=== PATIENT | female | born 1995 | race Caucasian/White ===

== ENCOUNTER 2016-10-30 19:48 | Emergency (ER) | payer BC ==
[2016-10-30] MEDS ORDERED: diphenhydrAMINE HCL 50 MG/ML VIAL IM ONE (21:48)
[2016-10-30] MEDS ORDERED: METHYLPREDNISOLONE ACETATE 80 MG/ML VIAL IM ONE (21:54)
--- OUTSIDE RECORDS SUMMARY | 2016-10-30 22:02 | XMS REPORT | Continuity of Care Document ---
:1995 Author Organization [facility] ([facility]) [place] [address] Phone [phone] Care Team Providers Name Role Phone Provider, No-Primary Care Primary Care Provider Unavailable Source Comments This disclosure is being made pursuant to the Care Everywhere program, applicable federal and state laws, and may not contain all informaitonavailable regarding this patient.[facility] ([facility]) Active Allergies and Adverse Reactions Not on File Current Medications Not on file Active Problems Not on file Social History Tobacco Use Types Packs/Day Years Used Date Never Assessed Plan of Care Health Maintenance Due Date Last Done Comments Hepatitis B Vaccine (1 of 3 - Primary Series) 1996 HPV Vaccine (1 of 3 - Female/Unknown 3 Dose Series) 2007 Tdap Vaccine 2007 Meningococcal Vaccine (1 of 1) 2012 Lipid Disorder Screening 2014 MMR Vaccine 2014 Td Vaccine 2014 Varicella Vaccine (1 of 2 - Adult - No Evidence of 2014 Immunity) Influenza Vaccine: Seasonal (#1) 02/14/2016 Results from Last 3 Months Not on file
[2016-10-30] MEDS ORDERED: METHYLPREDNISOLONE ACETATE 80 MG/ML VIAL ONE (22:05)
[2016-10-30] MEDS ORDERED: diphenhydrAMINE HCL 50 MG/ML VIAL ONE (22:06)
--- NOTE | 2016-10-30 22:23 | ERNOTE ---
Integumentary HPI - Narrative Date of Service: 10/30/16 - General Time Seen by Provider: 10/30/16 21:36 Source: patient Exam Limitations: no limitations - Immun/Allergies/Home Medications Immunizations: IMMUNIZATION HX Immunizations Up to Date Yes History of Influenza Vaccine No Hx Pneumococcal Vaccination No Allergies/Adverse Reactions: Allergies Allergy/AdvReac Type Severity Reaction Status Date / Time No Known Allergies Allergy Verified 06/12/16 10:01 Home Medications: HOME MEDICATIONS Albuterol Sulfate [Proair Hfa] 1 - 2 puff IH Q4H PRN 08/11/15 [Last Taken Unknown] Citalopram Hydrobromide [Citalopram HBr] 10 mg PO DAILY 06/12/16 [Last Taken Unknown] Cephalexin Monohydrate [Keflex] 500 mg PO QID #40 cap 10/30/16 [Last Taken Unknown] predniSONE [Prednisone] 3 tab PO DAILY #9 tab 10/30/16 [Last Taken Unknown] - History of Present Illness Narrative: Pt. comes in with c/o bee sting to her L third toe yesterday and then she noticed redness and swelling of her R fifth finger yesterday. Pt. states that the bee did not sting her finger but she had a hang nail there yesterday. Review of Systems - Review of Systems Constitutional: Present: no symptoms reported. Absent: recent illness, fever, chills, fatigue, malaise EYE: Present: no symptoms reported ENT: Present: no symptoms reported Respiratory: Present: no symptoms reported. Absent: shortness of breath, cough , wheezing Cardiology: Present: no symptoms reported. Absent: chest pain, palpitations, edema Gastrointestinal/Abdominal: Present: no symptoms reported. Absent: nausea, vomiting, diarrhea Genitourinary: Present: no symptoms reported Musculoskeletal: Present: joint pain - L third toe, R fifth finger, joint swelling - L third toe to mid foot Skin: Present: other - redness R fifth finger and third L toe to mid-foot Neurological: Present: no symptoms reported. Absent: dizziness/light-headedness , numbness, tingling All Other Systems: All systems neg except as marked - Patient's Past Medical History Patient History - Medical: No pertinent hx, Anxiety Patient History - Cardiac/Respiratory: No pertinent hx Patient History - Cancer: No Hx of Cancer Patient History - Surgical Procedures: T & A, Other Patient History - Other: None - Family History Mother Family History - Medical: Family History - Cardiac/Respiratory: Coronary Heart Disease Father Family History - Medical: History Unknown - Social History Living Situations: home Abuse History: No History of abuse Psych History: Hx of Anxiety Smoking Status: Never smoker Alcohol Use: occasionally Drug Use: none - Immunizations Immunizations Up to Date: Yes Hx Pneumococcal Vaccination: No History of Influenza Vaccine: No Physical Exam - Physical Exam General Appearance: Present: wd/wn, alert, no apparent distress Eye Exam: Normal inspection: bilateral, PERRL: bilateral, EOMI: bilateral Ears, Nose, Throat: Present: normal ENT inspection, normal pharynx Neck: Present: normal inspection, nontender. Absent: lymphadenopathy (R), lymphadenopathy (L) Respiratory: Present: no respiratory distress, normal breath sounds, no accessory muscle use, chest nontender, lungs clear Cardiovascular/Chest: Present: regular rate, rhythm, no murmur, normal peripheral pulses Gastrointestinal/Abdominal: Present: normal bowel sounds, nontender, nondistended, soft Back Exam: Present: normal inspection Extremity Exam: Present: other - 0.5cm in diameter Neurological Exam: Present: alert, oriented, normal mood/affect, no motor/ sensory deficits Skin Exam: Present: warm/dry, other - redness as described above ED Progress - Vital Signs Vital Signs: Vital Signs 10/30/16 20:17 Temperature 36.5 C Pulse Rate 98 Respiratory 18 Rate Blood Pressure 121/97 O2 Sat by Pulse 100 Oximetry - Progress/Reassessment Chief Complaint: Insect Bite Departure Clinical Impression: Bee sting allergy, Cellulitis and abscess of finger, unspecified - Departure Disposition: Home self-care Condition: Good Instructions: Cellulitis, Adult, [id number], Anaphylactic Reaction, Easy-to- Read Additional Instructions: Please follow up with Ria murrell in 2-3 days and get melinda vizcarra and galen to keep on you at all times until you are seen by her. Referrals: Ria Murrell MD [Primary Care Provider] - Prescriptions: Cephalexin Monohydrate [Keflex] 500 mg PO QID #40 cap predniSONE [Prednisone] 3 tab PO DAILY #9 tab
[2016-10-31 00:59] VITALS: BP 112/70
== END 2016-10-30 22:35 | disposition home or self-care (01) ==
LOC: ER 19:48
DX: T63.441A Toxic effect of venom of bees, accidental (unintentional), initial encounter (principal); Y92.9 Unspecified place or not applicable; Z91.030 Bee allergy status; L03.011 Cellulitis of right finger

== ENCOUNTER 2017-03-20 00:21 | Emergency (ER) | payer BC ==
--- NOTE | 2017-03-20 00:30 | ERNOTE ---
ER Female HPI Date of Service: 03/20/17 Stated Complaint: UTI Presenting Symptoms: dysuria Time Seen by Provider: 03/20/17 00:27 Immunizations: IMMUNIZATION HX Immunizations Up to Date Yes History of Influenza Vaccine No Hx Pneumococcal Vaccination No Allergies/Adverse Reactions: Allergies No Known Allergies Allergy (Verified 06/12/16 10:01) Home Medications: HOME MEDICATIONS Albuterol Sulfate [Proair Hfa] 1 - 2 puff IH Q4H PRN 08/11/15 [Last Taken Unknown] Venlafaxine HCl [Effexor Xr] 150 mg PO DAILY 03/20/17 [Last Taken Unknown] lamoTRIgine [Lamictal] 100 mg PO DAILY 03/20/17 [Last Taken Unknown] - History of Present Illness Narrative: This is a 21-year-old female who comes to the emergency department complaining of dysuria. She says that she was seen last Sunday and was told she might have a urinary tract infection and given antibiotics. She had dysuria at that time which was mild. She has been on the antibiotics and says that the dysuria has gotten worse. She says that she is also noticed some lesions and has had an change in her vaginal discharge. Last period was middle of February. She is not on contraceptive. The patient admits she has had a new sexual partner recently and that they did not use protection. She has no history of sexual transmitted diseases. The patient has no other complaints. No fever or chills back pain pelvic pain chest pain shortness of breath headache blurred vision or any other complaints Review of Systems - Review of Systems Constitutional: Present: no symptoms reported EYE: Present: no symptoms reported ENT: Present: no symptoms reported Respiratory: Present: no symptoms reported Cardiology: Present: no symptoms reported Gastrointestinal/Abdominal: Present: no symptoms reported Genitourinary: Present: See HPI, frequency, dysuria, discharge Musculoskeletal: Present: no symptoms reported Skin: Present: no symptoms reported Neurological: Present: no symptoms reported Endocrine: Present: no symptoms reported Hematologic/Lymphatic: Present: no symptoms reported Psych: Present: no symptoms reported All Other Systems: All systems neg except as marked - Patient's Past Medical History Patient History - Medical: No pertinent hx, Anxiety Patient History - Cardiac/Respiratory: No pertinent hx Patient History - Cancer: No Hx of Cancer Patient History - Surgical Procedures: T & A, Other Patient History - Other: None - Family History Mother Family History - Medical: Family History - Cardiac/Respiratory: Coronary Heart Disease Father Family History - Medical: History Unknown - Social History Living Situations: home Abuse History: No History of abuse Psych History: Hx of Anxiety Alcohol Use: occasionally Drug Use: none - Immunizations Immunizations Up to Date: Yes Hx Pneumococcal Vaccination: No History of Influenza Vaccine: No Physical Exam - Physical Exam General Appearance: Present: wd/wn, alert, no apparent distress Head Exam: Present: normal inspection, no evidence of injury Eye Exam: Normal inspection: bilateral, PERRL: bilateral, EOMI: bilateral Ears, Nose, Throat: Present: normal ENT inspection, normal pharynx Neck: Present: normal inspection, nontender Respiratory: Present: no respiratory distress, normal breath sounds, no accessory muscle use, lungs clear Cardiovascular/Chest: Present: regular rate, rhythm, no murmur, normal peripheral pulses Gastrointestinal/Abdominal: Present: normal bowel sounds, nontender, nondistended, soft Pelvic Exam: Present: other - pelvic exam was performed in the presence of nursing staff. External exam demonstrates 4 small vesicles and ulcers present on the left gluteal area. The patient has 2 similar lesions on the right labia minora. I do not see any lesions on the left labia minora. Vaginal exam demonstrates normal mucosa. No gross blood. No lesions. No significant discharge. Cervix is normal in appearance without cervicitis. Small amount of mucoid discharge which is likely normal. Digital exam does not demonstrate any cervical cervical motion tenderness or adnexal fullness Back Exam: Present: normal inspection, normal range of motion, no CVA tenderness , no vertebral tenderness Extremity Exam: Present: normal inspection, non-tender, normal range of motion, no edema Neurological Exam: Present: alert, oriented, normal mood/affect, no motor/ sensory deficits Skin Exam: Present: normal color, warm/dry Lymphatic Exam: Present: no adenopathy Plan - Plan Plan: I discussed with the patient the fact that her exam is quite concerning for sexually-transmitted diseases including herpes virus. I made the patient aware that I do not have the ability to test for this here in the emergency department , but she will need to see her VETERINARY EPIDEMIOLOGIST. This is something which needs to be done sooner rather than later. Her VETERINARY EPIDEMIOLOGIST will decide on whether to put her on immunosuppressant medicines I'm currently on soy suppressant medicines for viral , Valtrex. Because the patient has one sexually transmitted disease she is at risk for others. I think empiric treatment with Rocephin and azithromycin for gonorrhea and chlamydia would be appropriate. I counseled the patient on getting tested for HIV. The patient has been advised she should not have sexual intercourse until she has been comprehensively evaluated by her VETERINARY EPIDEMIOLOGIST. If she finds herself in a situation where she cannot avoid having her course she needs to make sure she uses protection. She is aware she should return to the ER for any new or worrisome symptoms Departure Clinical Impression: Genital herpes - Departure Disposition: Home self-care Condition: Stable Instructions: Genital Herpes Additional Instructions: As we discussed, urinary exam is very concerning for genital herpes. I do not have the ability to make this diagnosis here in the emergency department. This is something he will need to see her VETERINARY EPIDEMIOLOGIST doctor for. I want you to call tomorrow morning, tell them you were seen in the emergency department and why and asked to be worked into the schedule as soon as possible. Because I suspect you have one sexually transmitted disease, I will treat U for other commonly transmitted diseases including gonorrhea and chlamydia. I've gained any medicine for this. The need to talk to your family doctor or VETERINARY EPIDEMIOLOGIST doctor about getting checked for HIV as well. If the VETERINARY EPIDEMIOLOGIST doctor believes that you have genital herpes she will almost certainly start you on an antiviral medicine, likely Valtrex. You must absolutely positively have no intercourse and to you have been cleared to do so by your VETERINARY EPIDEMIOLOGIST doctor. The risks spreading possible sexually not transmitted diseases to others, even if you use protection. Return to the ER if you develop any new or some symptoms Referrals: Ria Falcon MD [Primary Care Provider] -
[2017-03-20 00:46] LABS: Urine Bilirubin Negative (NEGATIVE); Urine Blood Negative /ul (NEGATIVE); Urine Ketone Negative (NEGATIVE); Urine Nitrite Negative (NEGATIVE); Urine Protein Negative (NEGATIVE); Urine Urobilinogen Normal (NORMAL)
[2017-03-20 00:59] LABS: Urine Amorphous Sediment Many - 3+ (NONE-FEW); Urine Appearance Cloudy; Urine Bacteria 1+; Urine Color Yellow; Urine RBC None Seen /hpf (0-5); Urine WBC 0-5 /hpf (0-5)
[2017-03-20] MEDS ORDERED: AZITHROMYCIN 250 MG TABLET PO ONE ×2 (01:17→01:20)
[2017-03-20] MEDS ORDERED: AZITHROMYCIN 250 MG TABLET ONE (01:26)
[2017-03-20 01:47] VITALS: BP 126/89
== END 2017-03-20 01:45 | disposition home or self-care (01) ==
LOC: ER 00:21
DX: A60.00 Herpesviral infection of urogenital system, unspecified (principal)

== ENCOUNTER 2018-10-26 15:34 | Inpatient (IN) ==
[2018-10-26] MEDS ORDERED: OXYTOCIN/DEXTROSE 5%-WATER 30 UNITS/500 ML BAG IV ONE (18:00)
[2018-10-26] MEDS ORDERED: PENICILLIN G POTASSIUM 5 MILLIONUNT in DEXTROSE 5 % IN WATER 100 ML IV ONE ×2 (18:00)
[2018-10-26] MEDS ORDERED: RINGER'S SOLUTION,LACTATED 1,000 ML IV ONE (18:00)
[2018-10-26] MEDS ORDERED: DEXTROSE 5%-LACTATED RINGERS 1,000 ML IV PRN (18:00)
[2018-10-26 19:56] LABS: Cocaine Ur Negative (NEGATIVE); Urine Barbiturate Negative (NEGATIVE); Urine Benzodiazepines Negative (NEGATIVE); Urine Opiates Negative (NEGATIVE); Urine PCP Negative (NEGATIVE); Urine THC Negative (NEGATIVE)
[2018-10-26] MEDS ORDERED: ONDANSETRON HCL/PF 2 MG/ML VIAL IV PRN (21:07)
[2018-10-26] MEDS ORDERED: NALOXONE HCL 1 MG/1 ML SYRG IV PRN (21:07)
[2018-10-26] MEDS ORDERED: BUPIVACAINE HCL/0.9 % NACL/PF 250 ML EP PRN (21:07)
[2018-10-26] MEDS ORDERED: LIDOCAINE HCL/EPINEPHRINE 20 ML VIAL IJ ONE (21:08)
[2018-10-26] MEDS ORDERED: BUPIVACAINE HCL/PF 30 ML VIAL EP SCH (21:15)
[2018-10-26] MEDS ORDERED: PENICILLIN G POTASSIUM 2.5 MILLIONUNT in DEXTROSE 5 % IN WATER 100 ML IV SCH ×2 (22:00)
[2018-10-26] MEDS ORDERED: LIDOCAINE HCL/EPINEPHRINE 20 ML VIAL ONE (22:21)
--- NOTE | 2018-10-26 22:22 | ANES ---
Anesthesia Pre Procedure Eval Vitals/Labs: Last Vital Signs Temp 37.1 C 10/26/18 18:55 Pulse 123 H 10/26/18 18:55 Resp 18 10/26/18 18:55 BP 129/77 10/26/18 18:55 Pulse Ox 98 10/26/18 18:55 HOME MEDICATIONS [id number] 400 mcg-om3 35 mg-dha 25 mg-epa 5 mg-fish oil chewable tablet 1 tab PO DAILY tab 03/26/18 [Last Taken 10/26/18] ferrous sulfate 325 mg (65 mg iron) tablet 325 mg PO DAILY #30 tab 08/08/18 [Last Taken 10/26/18] Aspirin [Aspirin EC] 81 mg PO DAILY 08/09/18 [Last Taken 10/26/18] valacyclovir 1 gram tablet 1,000 mg PO DAILY #30 tab 09/26/18 [Last Taken 10/15/18] sertraline 100 mg tablet 100 mg PO .COMPLEX 30 Days #30 tab 10/17/18 [Last Taken Unknown] Allergies/Adverse Reactions: Allergies Allergy/AdvReac Type Severity Reaction Status Date / Time bee venom protein (honey bee) Allergy Mild Swelling Verified 10/26/18 18:03 to Site betamethasone Allergy Mild Rash Verified 10/26/18 18:03 - Planned Procedure Planned Procedure: Labor epidural Medication List Reviewed:: Yes Allergies Verified: Yes Medical History (Updated 10/17/18 @ 14:54 by Liz Mcelroy MD) Asthma (Inactive) History of pre-eclampsia (Chronic) HSV antigen DIF positive (Inactive) Depression (Chronic) Subchorionic hemorrhage (Acute) 1.19cm x 0.61cm Anemia Onset Date: 11/15/15 w/pregnancies Anxiety Asthma Onset Date: Unknown as a child, no current problems or tx, no hospitalizations Body piercing Depression Onset Date: 04/17/16 HSV-1 (herpes simplex virus 1) infection Onset Date: 03/22/17 HSV-2 (herpes simplex virus 2) infection Onset Date: 03/22/17 Last outbreak 03/2017 Hemorrhoids Onset Date: Unknown Tattoos Wears glasses Heart murmur Onset Date: Unknown Hx of wisdom tooth extraction Onset Date: ~2013 Pharyngitis, acute Onset Date: 04/15/12 hypertension Onset Date: 02/29/16 Pre-eclampsia Onset Date: 02/18/16 Urinary tract infection Onset Date: ~2010 Cellulitis and abscess of finger, unspecified (Inactive) Genital herpes (Inactive) Pre-eclampsia (Inactive) labor (Inactive) Tibia and fibula open fracture, right (Inactive) Trimalleolar fracture of left ankle (Inactive) Surgical History (Updated 10/15/18 @ 21:33 by Buck Pryor DO) Hx of tonsillectomy History of ankle surgery Onset Date: ~05/2017 Bilateral ankle and lower leg tonsillectomy and adenoidectomy in patient age 12 or over Onset Date: ~2013 Family History (Updated 03/26/18 @ 13:48 by Christopher Carr RN) Grandfather Heart disease Diabetes Throat cancer CHF (congestive heart failure) Grandmother TIA CVA (cerebral vascular accident) Mother , suddenly at work 2015 age 47 Hypertension Enlarged heart suddenly at work in 2015 @ age 47. Brother Autism Daughter Heart murmur Bile acid esophageal reflux - Anesthesia Assessment and Plan ASA Class: PS, II Anesthesia Type Plan: Epidural
--- NOTE | 2018-10-26 22:40 | ANES ---
Post Anesthesia Assessment - Vital Signs Vitals: Last Vital Signs Temp 36.7 C 10/26/18 22:35 Pulse 94 10/26/18 22:35 Resp 18 10/26/18 22:35 BP 131/76 10/26/18 22:35 Pulse Ox 100 10/26/18 22:35 Airway Patency: Normal - Mental Status Level Of Consciousness: Awake - N/V Assessment Nausea/Vomiting Presence: None Dehydration:: No
--- NOTE | 2018-10-26 22:40 | ANES ---
Anesthesia Procedure Note Procedure Note: ANESTHESIA PROCEDURE NOTE Date of Procedure: 11/01/2018. Time of procedure: 2224. Performed by: Gennaro Segovia CRNA Collar Setter Overlock: None. Preprocedure diagnosis: Active labor. Post procedure diagnosis: Same. Procedure: Insertion of labor epidural. Indications: The patient is a 23 -year-old female in active labor requesting labor epidural for pain management. Findings: See below. Details of the procedure: The patient was placed in a sitting position. DuraPrep as well as Betadine swabs X3 was applied to the patient's back. Patient was then draped in a sterile fashion. Lidocaine 1% was infiltrated to the skin and subcutaneous tissues at the level of the L3-4 interspace. The epidural space was identified using a 18-gauge Tuohy needle with [id number] technique. Epidural catheter was inserted to a depth of 13 centimeters at skin. Negative test dose was elicited using 3 mL of 2% preservative-free lidocaine plus epinephrine 1 200,000. The epidural catheter was then taped and secured in place. A loading dose of 8 mL of 0.25% preservative-free bupivacaine was administered to the epidural catheter after negative aspiration for blood and CSF. EBL: Minimal. Fluids: N/A. Specimen: N/A. Post procedure condition: The patient tolerated the procedure well. No complications were noted. Thank you for this consultation. Gennaro Segovia CRNA
--- NOTE | 2018-10-27 01:52 | HP ---
Chief Complaint - Chief Complaint Date of Service: 10/27/18 Time of Service: 01:51 Chief Complaint: induction of labor for oligohydramnios History of Present Illness: 23 yo admitted at 39 wks for induction of labor due to oligohydramnios. This complicated by anemia, anxiety/bipolar/depression, HSV carrier, oligohydramnios, h/o preeclampsia, and labor. Rh negative Rubella immune GBS carrier Medical History (Updated 10/27/18 @ 01:51 by Buck Pryor DO) Asthma (Inactive) History of pre-eclampsia (Chronic) HSV antigen DIF positive (Inactive) Depression (Chronic) Subchorionic hemorrhage (Acute) 1.19cm x 0.61cm Anemia Onset Date: 11/15/15 w/pregnancies Anxiety Asthma Onset Date: Unknown as a child, no current problems or tx, no hospitalizations Body piercing Depression Onset Date: 04/17/16 HSV-1 (herpes simplex virus 1) infection Onset Date: 03/22/17 HSV-2 (herpes simplex virus 2) infection Onset Date: 03/22/17 Last outbreak 03/2017 Hemorrhoids Onset Date: Unknown Tattoos Wears glasses Heart murmur Onset Date: Unknown Hx of wisdom tooth extraction Onset Date: ~2013 Pharyngitis, acute Onset Date: 04/15/12 hypertension Onset Date: 02/29/16 Pre-eclampsia Onset Date: 02/18/16 Urinary tract infection Onset Date: ~2010 Cellulitis and abscess of finger, unspecified (Inactive) Genital herpes (Inactive) Pre-eclampsia (Inactive) labor (Inactive) Tibia and fibula open fracture, right (Inactive) Trimalleolar fracture of left ankle (Inactive) Surgical History: Surgical History (Updated 10/15/18 @ 21:33 by Buck Pryor DO) Hx of tonsillectomy History of ankle surgery Onset Date: ~05/2017 Bilateral ankle and lower leg tonsillectomy and adenoidectomy in patient age 12 or over Onset Date: ~2013 Family History: Family History (Updated 03/26/18 @ 13:48 by Christopher Carr RN) Grandfather Heart disease Diabetes Throat cancer CHF (congestive heart failure) Grandmother TIA CVA (cerebral vascular accident) Mother , suddenly at work 2015 age 47 Hypertension Enlarged heart suddenly at work in 2014 @ age 47. Brother Autism Daughter Heart murmur Bile acid esophageal reflux Social History: Preferred Language Occitan Smoking Status Never smoker Abuse History No History of abuse Psych History Hx of Anxiety,Currently on Meds (Last Updated 10/17/18 @ 15:35 by Liz Mcelroy MD) No Social History Section defined Review Of Systems (GEN) - Review of Systems Generalized/Overall Review: Present: No Symptoms Reported EENTM: Present: No Symptoms Reported Respiratory: Present: No Symptoms Reported Cardiac: Present: No Symptoms Reported Abdominal: Present: No Symptoms Reported Genitourinary: Present: No Symptoms Reported Musculoskeletal: Present: No Symptoms Reported Neurological: Present: No Symptoms Reported Skin: Present: No Symptoms Reported Endocrine: Present: No Symptoms Reported Immunizations: IMMUNIZATION HX Immunizations Up to Date Yes History of Influenza Vaccine Yes Hx Pneumococcal Vaccination No Allergies/Adverse Reactions: Allergies Allergy/AdvReac Type Severity Reaction Status Date / Time bee venom protein (honey bee) Allergy Mild Swelling Verified 10/26/18 18:03 to Site betamethasone Allergy Mild Rash Verified 10/26/18 18:03 Home Medications: HOME MEDICATIONS [id number] 400 mcg-om3 35 mg-dha 25 mg-epa 5 mg-fish oil chewable tablet 1 tab PO DAILY tab 03/26/18 [Last Taken 10/26/18] ferrous sulfate 325 mg (65 mg iron) tablet 325 mg PO DAILY #30 tab 08/08/18 [Last Taken 10/26/18] Aspirin [Aspirin EC] 81 mg PO DAILY 08/09/18 [Last Taken 10/26/18] valacyclovir 1 gram tablet 1,000 mg PO DAILY #30 tab 09/26/18 [Last Taken 10/15/18] sertraline 100 mg tablet 100 mg PO .COMPLEX 30 Days #30 tab 10/17/18 [Last Taken Unknown] Exam - Exam Vital Signs: Vital Signs - Last Taken Temp 36.7 C 10/26/18 22:35 Pulse 94 10/26/18 22:35 Resp 18 10/26/18 22:35 BP 131/76 10/26/18 22:35 Pulse Ox 100 10/26/18 22:35 Constitutional: Present: Alert, Oriented x3, Cooperative, No distress ENT Exam: Present: hearing grossly normal Back Exam: Present: no CVA tenderness Respiratory: Present: lungs clear, no respiratory distress Cardiovascular/Chest: Present: regular rate, rhythm Abdomen: Present: soft, nontender, no rebound tenderness, other - gravid /Rectal: Present: Other - 3-4/60/-2 Extremity: Present: no calf tenderness, lower extremity edema Skin Exam: Present: normal color, warm/dry, no cyanosis Neurologic: Present: alert, normal mood/affect, oriented x 3 Appearance: Present: appropriate appearance, appropriate insight Eye contact: Present: cooperative, good eye contact Thoughts: Present: normal thought pattern Diagnostic Studies: Laboratory Results Negative (NEGATIVE) 10/26/18 18:51 Negative (NEGATIVE) 10/26/18 18:51 Ur Phencyclidine Scrn Negative (NEGATIVE) 10/26/18 18:51 Urine Amphetamine Negative (NEGATIVE) 10/26/18 18:51 U Benzodiazepines Scrn Negative (NEGATIVE) 10/26/18 18:51 Negative (NEGATIVE) 10/26/18 18:51 Negative (NEGATIVE) 10/26/18 18:51 Assessment/Plan - Assessment/Plan (1) Oligohydramnios Assessment: Admit for pitocin induction of labor. Epidural PRN. Problem: Acute Qualifiers: Fetus number: single or unspecified fetus Trimester: third trimester Qualified Code(s): O41.03X0 - Oligohydramnios, third trimester, not applicable or unspecified (2) Depression with anxiety Problem: Acute (3) Asthma Problem: Inactive Qualifiers: Asthma severity: mild Asthma persistence: intermittent Asthma complication type: uncomplicated Qualified Code(s): J45.20 - Mild intermittent asthma, uncomplicated (4) History of pre-eclampsia Problem: Chronic (5) HSV antigen DIF positive Problem: Inactive
--- NOTE | 2018-10-27 01:53 | OR ---
Operative Report - Dictated Report Narrative: Spontaneous vaginal delivery of vigorously crying viable female at 0137 on 10/27/2018 with Apgars 9 and 9, weighing 3170 g and DARRIAN position with terminal meconium. Cord clamping delayed approximately 1 minute Placenta delivered complete, intact, with three vessel cord Estimated blood loss: less than 50 ml Anesthesia: epidural Lacerations: None History for MU Definition: * The number of deliveries resulting in a live the patient experienced prior to current hospitalization * The previous delivery of live twins or any live multiple gestation is considered one live event. *If primagravida or nulliparous is documented select zero for the number of previous live births. Live Events: 1
[2018-10-27] MEDS ORDERED: SENNOSIDES 8.6 MG TABLET PO PRN (02:09)
[2018-10-27] MEDS ORDERED: GLYCERIN/WITCH HAZEL LEAF 40 APPL BOX TP PRN (02:09)
[2018-10-27] MEDS ORDERED: oxyCODONE HCL/ACETAMINOPHEN 1 TAB TABLET PO PRN (02:09)
[2018-10-27] MEDS ORDERED: BENZOCAINE/MENTHOL 81 SPRAY CAN TP PRN (02:09)
[2018-10-27] MEDS ORDERED: OXYTOCIN/DEXTROSE 5%-WATER 30 UNITS/500 ML BAG IV ONE (02:09)
[2018-10-27] MEDS ORDERED: HYDROCORTISONE 30 APPL TUBE TP PRN (02:09)
[2018-10-27] MEDS ORDERED: BISACODYL 10 MG SUPP.RECT RC PRN (02:09)
[2018-10-27] MEDS ORDERED: RHO(D) IMMUNE GLOBULIN 1,500 UNIT SYRINGE IM SCH (09:11)
[2018-10-27] MEDS: oxyCODONE HCL/ACETAMINOPHEN 1 TAB TABLET PO PRN ×4 (09:47→22:05)
[2018-10-27] MEDS: IBUPROFEN 800 MG TABLET PO PRN ×2 (09:47→22:06)
[2018-10-27] MEDS: DOCUSATE SODIUM 100 MG CAPSULE PO SCH ×2 (14:35→20:37)
[2018-10-28] MEDS: DOCUSATE SODIUM 100 MG CAPSULE PO SCH ×2 (08:48→20:56)
--- NOTE | 2018-10-28 09:00 | PN ---
Subjective - Date and Time Seen Date: 10/28/18 Time: 09:00 Objective - Vitals Vitals: Last Vital Signs Temp 36.3 C 10/28/18 07:34 Pulse 60 10/28/18 07:34 Resp 20 10/28/18 07:34 BP 100/60 10/28/18 07:34 Pulse Ox 100 10/27/18 18:03 Patient denies complaints. Lochia wnl Abdomen - soft, nontender Uterus - firm, at umbilicus - 1 No calf tenderness Impression: day #1 - s/p spontaneous vaginal delivery. Plan: Continue routine care Assessment/Plan - Problems/Diagnosis (1) Oligohydramnios Problem: Acute Qualifiers: Fetus number: single or unspecified fetus Trimester: third trimester Qualified Code(s): O41.03X0 - Oligohydramnios, third trimester, not applicable or unspecified (2) Depression with anxiety Problem: Acute (3) Asthma Problem: Inactive Qualifiers: Asthma severity: mild Asthma persistence: intermittent Asthma complication type: uncomplicated Qualified Code(s): J45.20 - Mild intermittent asthma, uncomplicated (4) History of pre-eclampsia Problem: Chronic (5) HSV antigen DIF positive Problem: Inactive
[2018-10-28] MEDS: IBUPROFEN 800 MG TABLET PO PRN (18:30)
[2018-10-29] MEDS: IBUPROFEN 800 MG TABLET PO PRN (02:59)
[2018-10-29 06:47] VITALS: BP 139/91
[2018-10-29] MEDS: DOCUSATE SODIUM 100 MG CAPSULE PO SCH (08:18)
--- NOTE | 2018-10-29 08:52 | PN ---
Subjective - Date and Time Seen Date: 10/29/18 Time: 08:50 - patient seen at 7 AM Objective - Vitals Vitals: Last Vital Signs Temp 36.2 C 10/29/18 06:44 Pulse 69 10/29/18 06:44 Resp 18 10/29/18 06:44 BP 139/91 H 10/29/18 06:44 Pulse Ox 100 10/29/18 06:44 Patient denies complaints. Breast-feeding Lochia wnl Abdomen - soft, nontender Uterus - firm, at umbilicus - 2 No calf tenderness Impression: day #2 - s/p spontaneous vaginal delivery. Elevated blood pressure without symptoms of preeclampsia Plan: Routine discharge instructions. Preeclampsia precautions. Recheck blood pressure in 1 week. Assessment/Plan - Problems/Diagnosis (1) Oligohydramnios Problem: Acute Qualifiers: Fetus number: single or unspecified fetus Trimester: third trimester Qualified Code(s): O41.03X0 - Oligohydramnios, third trimester, not applicable or unspecified (2) Depression with anxiety Problem: Acute (3) Asthma Problem: Inactive Qualifiers: Asthma severity: mild Asthma persistence: intermittent Asthma complication type: uncomplicated Qualified Code(s): J45.20 - Mild intermittent asthma, uncomplicated (4) History of pre-eclampsia Problem: Chronic (5) HSV antigen DIF positive Problem: Inactive
== END 2018-10-29 08:50 | disposition home or self-care (01) | DRG 806 ==
LOC: OB 18:11
PROVIDERS: ADMIT Obstetrics & Gynecology; ATTEND Obstetrics & Gynecology
CPT/HCPCS: 59025; 80307; 85460; 88307; J2790